=== PATIENT | male | born 1935 | race Caucasian/White ===

== ENCOUNTER 2020-05-20 01:17 | Emergency (ER) | payer BC ==
[~2020-05-20] VITALS: Ht 180.3 cm; Wt 97.5 kg
[2020-05-20] MEDS ORDERED: CHOL MED (01:33)
[2020-05-20] MEDS ORDERED: HYDROCODON-ACE1 EAC8 PO (03:05)
[2020-05-20 03:25] VITALS: BP 118/87
== END 2020-05-20 03:25 | disposition home or self-care (01) ==
LOC: M.ERS 01:17
DX: U07.1 COVID-19 (principal); J02.9 Acute pharyngitis, unspecified